=== PATIENT | male | born 1980 | race Caucasian/White ===

== ENCOUNTER 2019-02-13 18:51 | Emergency (ER) | payer BC, MEDICAID ==
[2019-02-13 18:57] VITALS: TEMP 98
[2019-02-13] MEDS ORDERED: HYDROcodone/APAP 5-325MG 1 EACH TAB PO STA (19:37)
[2019-02-13] MEDS ORDERED: KETOROLAC 30 MG/ML 1 ML VIAL IM STA (19:37)
[2019-02-13] MEDS ORDERED: LIDOCAINE 5% PATCH TOPICAL STA (19:37)
--- NOTE | 2019-02-13 19:43 | ED ---
General Adult HPI - General Chief complaint: Abdominal Pain Stated complaint: Rib Pain Time Seen by Provider: 02/13/19 19:07 Source: patient Mode of arrival: ambulatory Limitations: no limitations - History of Present Illness Initial comments: 38-year-old male patient presents to the emergency department today for evaluation of right lateral rib pain. Patient states around 5:30 this afternoon he was jumping up to grab onto gymnastic rings when he fell landing on the right side. States that it was on and on padded region of the floor. Denies hitting his head or losing consciousness. Denies any neck or back pain. Patient states he is having increased pain to the area with deep breathing. Denies any cough or hemoptysis. Denies any shortness of breath. Denies any abdominal pain. Denies hematuria. Patient denies any headache, chest pain, shortness of breath, dizziness, weakness, abdominal pain, nausea, vomiting, or difficulties with bowel movements or urination. - Related Data Home Medications Medication Instructions Recorded Confirmed Multivitamins, Thera [Multivitamin] 1 each PO DAILY 12/05/15 12/06/15 Previous Rx's Medication Instructions Recorded Hydrocodone/Acetaminophen [Bliss 1 tab PO Q6HR PRN #12 tab 02/13/19 5-325] Ibuprofen [Motrin] 600 mg PO Q8HR PRN #30 tab 02/13/19 Lidocaine 5% Patch [Lidoderm] 1 patch TOPICAL DAILY #30 patch 02/13/19 Allergies Allergy/AdvReac Type Severity Reaction Status Date / Time almond Allergy Nausea & Verified 02/13/19 18:57 Vomiting clams Allergy Unknown Verified 02/13/19 18:57 Penicillins Allergy Unknown Verified 12/05/15 09:07 Childhood Review of Systems ROS Statement: Those systems with pertinent positive or pertinent negative responses have been documented in the HPI. ROS Other: All systems not noted in ROS Statement are negative. Past Medical History Past Medical History: No Reported History History of Any Multi-Drug Resistant Organisms: None Reported Past Surgical History: No Surgical Hx Reported Past Anesthesia/Blood Transfusion Reactions: No Reported Reaction Additional Past Anesthesia/Blood Transfusion Reaction / Comment(s): no prior sx hx Past Psychological History: No Psychological Hx Reported Smoking Status: Never smoker Past Alcohol Use History: Occasional Past Drug Use History: None Reported - Past Family History Mother Family Medical History: Cancer Father Family Medical History: Cancer General Exam Limitations: no limitations General appearance: alert, in no apparent distress, other (This is a well- developed, well-nourished adult male patient in no acute distress. Vital signs upon presentation are temperature 98.0F, pulse 72, respirations 18, blood pressure 116/79, pulse ox 99% on room air per) Eye exam: Present: normal appearance, PERRL, EOMI. Absent: scleral icterus, conjunctival injection, periorbital swelling ENT exam: Present: normal exam, normal oropharynx, mucous membranes moist Neck exam: Present: normal inspection, other (Nontender, no step-off, no deformity to firm midline palpation of the posterior cervical spine. Full range of motion without pain or limitation.). Absent: tenderness, meningismus, lymphadenopathy Respiratory exam: Present: normal lung sounds bilaterally, chest wall tenderness (Right lateral ribs). Absent: respiratory distress, wheezes, rales, rhonchi, stridor Cardiovascular Exam: Present: regular rate, normal rhythm, normal heart sounds. Absent: systolic murmur, diastolic murmur, rubs, gallop, clicks GI/Abdominal exam: Present: soft, normal bowel sounds. Absent: distended, tenderness, guarding, rebound, rigid Back exam: Present: other (Nontender, no step-off, no deformity to firm midline palpation of the thoracic and lumbar vertebrae. Full range of motion without pain or limitation.). Absent: CVA tenderness (R), CVA tenderness (L) Neurological exam: Present: alert, oriented X3, CN II-XII intact Psychiatric exam: Present: normal affect, normal mood Skin exam: Present: warm, dry, intact, normal color. Absent: rash Course Vital Signs 02/13/19 02/13/19 18:53 20:44 Temperature 98.0 F 98.0 F Pulse Rate 72 71 Respiratory 18 16 Rate Blood Pressure 116/79 118/86 O2 Sat by Pulse 99 98 Oximetry Medical Decision Making - Medical Decision Making 38-year-old male patient presents to the emergency department today for evaluation of right rib pain after experiencing a fall. Physical examination did reveal tenderness over the right lateral ribs. Lungs are clear to auscultation with good air movement. X-rays were obtained and did reveal a nondisplaced fracture of the right seventh rib. Patient was given incentive spirometer education. He is given prescriptions for pain management. He is instructed follow up with his primary care physician for recheck in 1-2 days. Return parameters discussed in detail. He verbalizes understanding and agrees with this plan. - Radiology Data Radiology results: report reviewed, image reviewed 5 views of the right ribs and chest are obtained. Report was reviewed in its entirety. Impression by Dr. Bell shows subtle nondisplaced fracture of the right anterolateral seventh rib. No underlying acute cardiopulmonary process seen. Disposition Clinical Impression: Right rib fracture Disposition: HOME SELF-CARE Condition: Good Instructions (If sedation given, give patient instructions): Rib Fracture (ED) Additional Instructions: Take medications as directed. Perform incentive spirometry and coughing and deep breathing exercises as directed while awake. Follow-up with the primary care physician for recheck in 1-2 days. Return to the emergency department immediately for any new, worsening, or concerning symptoms. Prescriptions: Lidocaine 5% Patch [Lidoderm] 1 patch TOPICAL DAILY #30 patch Ibuprofen [Motrin] 600 mg PO Q8HR PRN #30 tab PRN Reason: Pain Hydrocodone/Acetaminophen [Bliss 5-325] 1 tab PO Q6HR PRN #12 tab PRN Reason: Pain Is patient prescribed a controlled substance at d/c from ED?: Yes When asked, does pt state using other controlled substances?: No If prescribed controlled substance>3 days was MAPS reviewed?: Prescribed <3 Days If opioid is for acute pain is fill amount 7 days or less?: Yes If Rx opioid, was Start Talking consent form obtained?: Yes Referrals: None,Stated [Primary Care Provider] - 1-2 days Time of Disposition: 20:07
--- NOTE | 2019-02-13 19:58 | XR ---
EXAMINATION TYPE: PA chest and right rib series DATE OF EXAM: 02/13/2019 COMPARISON: None HISTORY: 38-year-old male with fall and rib pain TECHNIQUE: 5 views FINDINGS: Heart upper limits of normal in size. Aorta within normal limits. Mild interstitial prominence as a c hronic appearance. No consolidation, pneumothorax, or pleural effusion. Subtle nondisplaced fracture of the right anterolateral seventh rib. IMPRESSION: Subtle nondisplaced fracture of the right anterolateral seventh rib. No underlying acute cardiopulmon brian process seen.
[2019-02-13 20:45] VITALS: BP 118/86; PULSE 71; RESP 16
== END 2019-02-13 20:44 | disposition home or self-care (01) ==
LOC: EC 18:51
DX: S22.31XA Fracture of one rib, right side, initial encounter for closed fracture (principal); Z88.0 Allergy status to penicillin; Z53.20 Procedure and treatment not carried out because of patient's decision for unspecified reasons; Z91.018 Allergy to other foods; W18.39XA Other fall on same level, initial encounter; Y93.43 Activity, gymnastics
CPT/HCPCS: 99284

== ENCOUNTER 2022-03-03 10:09 | Observation (INO) | payer BC ==
--- NOTE | 2022-03-03 10:39 | ED ---
General Adult HPI - General Chief complaint: Neuro Symptoms/Deficit Stated complaint: Aphasia Time Seen by Provider: 03/03/22 10:20 Source: patient, family, RN notes reviewed Mode of arrival: ambulatory Limitations: no limitations - History of Present Illness Initial comments: Patient is a pleasant 42-year-old male presenting to the emergency Department with facial numbness and aphasia. Onset of symptoms was around 9 AM. Patient was hunting at the time. Patient felt odd sensation of his face. Patient also had a mild headache rated 3/10 left temporal. This headache does continue and does continue to be mild. Not sudden onset or severe. Patient did have some blurry vision from his right eye. No difficulty with walking or extremity weakness. Patient had difficulty getting his words out. Patient was unable to say his daughter's name. The symptoms have improved and patient and spouse feel like he is talking normally at this time. No odd facial sensation anymore. No history of similar symptoms previously. There was questionable history of seizure years ago. - Related Data Home Medications Medication Instructions Recorded Confirmed No Known Home Medications 03/03/22 03/03/22 Allergies Allergy/AdvReac Type Severity Reaction Status Date / Time clams Allergy Unknown Verified 03/03/22 12:59 Penicillins Allergy Unknown Verified 03/03/22 12:59 Childhood almond AdvReac Nausea & Verified 03/03/22 12:59 Vomiting Review of Systems ROS Statement: Those systems with pertinent positive or pertinent negative responses have been documented in the HPI. ROS Other: All systems not noted in ROS Statement are negative. Constitutional: Denies: fever Eyes: Denies: eye pain ENT: Denies: ear pain Respiratory: Denies: cough Cardiovascular: Denies: chest pain Endocrine: Denies: fatigue Gastrointestinal: Denies: abdominal pain Genitourinary: Denies: dysuria Musculoskeletal: Denies: back pain Skin: Denies: rash Neurological: Reports: as per HPI, headache. Denies: confusion Past Medical History Past Medical History: No Reported History History of Any Multi-Drug Resistant Organisms: None Reported Past Surgical History: No Surgical Hx Reported Past Anesthesia/Blood Transfusion Reactions: No Reported Reaction Additional Past Anesthesia/Blood Transfusion Reaction / Comment(s): no prior sx hx Past Psychological History: No Psychological Hx Reported Smoking Status: Never smoker Past Alcohol Use History: Occasional Past Drug Use History: None Reported - Past Family History Mother Family Medical History: Cancer Father Family Medical History: Cancer General Exam Limitations: no limitations General appearance: alert, in no apparent distress Head exam: Present: atraumatic, normocephalic, other (No temporal tenderness to palpation) Eye exam: Present: normal appearance, PERRL, EOMI ENT exam: Present: normal oropharynx Neck exam: Present: normal inspection Respiratory exam: Present: normal lung sounds bilaterally Cardiovascular Exam: Present: regular rate, normal rhythm GI/Abdominal exam: Present: soft. Absent: tenderness Extremities exam: Present: normal inspection Neurological exam: Present: alert, CN II-XII intact. Absent: motor sensory deficit Expanded Neurological exam: Present: protecting the airway Speech: Present: fluid speech Cranial nerves: EOM's Intact: Normal, Facial Sensation: Normal Cerebellar function: Finger to Nose: Normal Sensory exam: Upper Extremity Light Touch: Normal, Lower Extremity Light Touch: Normal Motor strength exam: RUE: 5, LUE: 5, RLE: 5, LLE: 5 Eye Response: (4) open spontaneously Motor Response: (6) obeys commands Verbal Response: (5) oriented Psychiatric exam: Present: normal affect, normal mood Skin exam: Present: normal color Course Vital Signs 03/03/22 03/03/22 03/03/22 10:13 10:58 11:30 Temperature 97.5 F L Pulse Rate 64 65 61 Respiratory 18 18 18 Rate Blood Pressure 134/84 116/77 121/82 O2 Sat by Pulse 100 99 97 Oximetry - Reevaluation(s) Reevaluation #1: 03/03/22 10:46 Patient is not being considered a TPA candidate secondary to resolution of symptoms. Risks are felt to outweigh the benefit. 03/03/22 10:53 Dr. Elise does confirm patient is not a TPA candidate EKG Findings - EKG Results: EKG: interpreted by ERMD, sinus rhythm, normal axis, normal QRS, normal ST/T Medical Decision Making - Medical Decision Making Patient was reevaluated and remained symptom-free. Case was discussed with Dr. Aguayo, who will admit covering hospital call. - Lab Data Result diagrams: 03/03/22 10:40 03/03/22 10:40 Lab Results 03/03/22 03/03/22 03/03/22 Range/Units 10:40 10:40 10:40 WBC 3.9 (3.8-10.6) k/uL RBC 5.11 (4.30-5.90) m/uL Hgb 15.8 (13.0-17.5) gm/dL Hct 42.7 (39.0-53.0) % MCV 83.5 (80.0-100.0) fL MCH 30.8 (25.0-35.0) pg MCHC 36.9 (31.0-37.0) g/dL RDW 12.2 (11.5-15.5) % Plt Count 183 (150-450) k/uL MPV 7.5 Neutrophils % 52 % Lymphocytes % 34 % Monocytes % 6 % Eosinophils % 4 % Basophils % 1 % Neutrophils # 2.0 (1.3-7.7) k/uL Lymphocytes # 1.3 (1.0-4.8) k/uL Monocytes # 0.2 (0-1.0) k/uL Eosinophils # 0.2 (0-0.7) k/uL Basophils # 0.0 (0-0.2) k/uL Hyperchromasia Slight PT 10.9 (9.0-12.0) sec INR 1.0 (<1.2) APTT 24.1 (22.0-30.0) sec Carbon Monoxide, Quant (<10.0) % Sodium 140 (137-145) mmol/L Potassium 4.4 (3.5-5.1) mmol/L Chloride 104 (98-107) mmol/L Carbon Dioxide 26 (22-30) mmol/L Anion Gap 10 mmol/L BUN 15 (9-20) mg/dL Creatinine 1.00 (0.66-1.25) mg/dL Est GFR (CKD-EPI)AfAm >90 (>60 ml/min/1.73 sqM) Est GFR (CKD-EPI)NonAf >90 (>60 ml/min/1.73 sqM) Glucose 107 H (74-99) mg/dL POC Glucose (mg/dL) (70-110) mg/dL POC Glu Inseam Trimming Machine Operator ID Calcium 9.5 (8.4-10.2) mg/dL Total Bilirubin 1.3 (0.2-1.3) mg/dL AST 14 L (17-59) U/L ALT 16 (4-49) U/L Alkaline Phosphatase 63 (38-126) U/L Troponin I (0.000-0.034) ng/mL Total Protein 7.3 (6.3-8.2) g/dL Albumin 4.6 (3.5-5.0) g/dL 03/03/22 03/03/22 03/03/22 Range/Units 10:40 10:40 10:58 WBC (3.8-10.6) k/uL RBC (4.30-5.90) m/uL Hgb (13.0-17.5) gm/dL Hct (39.0-53.0) % MCV (80.0-100.0) fL MCH (25.0-35.0) pg MCHC (31.0-37.0) g/dL RDW (11.5-15.5) % Plt Count (150-450) k/uL MPV Neutrophils % % Lymphocytes % % Monocytes % % Eosinophils % % Basophils % % Neutrophils # (1.3-7.7) k/uL Lymphocytes # (1.0-4.8) k/uL Monocytes # (0-1.0) k/uL Eosinophils # (0-0.7) k/uL Basophils # (0-0.2) k/uL Hyperchromasia PT (9.0-12.0) sec INR (<1.2) APTT (22.0-30.0) sec Carbon Monoxide, Quant 3.1 (<10.0) % Sodium (137-145) mmol/L Potassium (3.5-5.1) mmol/L Chloride (98-107) mmol/L Carbon Dioxide (22-30) mmol/L Anion Gap mmol/L BUN (9-20) mg/dL Creatinine (0.66-1.25) mg/dL Est GFR (CKD-EPI)AfAm (>60 ml/min/1.73 sqM) Est GFR (CKD-EPI)NonAf (>60 ml/min/1.73 sqM) Glucose (74-99) mg/dL POC Glucose (mg/dL) 109 (70-110) mg/dL POC Glu Inseam Trimming Machine Operator ID Bianka, [place] Calcium (8.4-10.2) mg/dL Total Bilirubin (0.2-1.3) mg/dL AST (17-59) U/L ALT (4-49) U/L Alkaline Phosphatase (38-126) U/L Troponin I <0.012 (0.000-0.034) ng/mL Total Protein (6.3-8.2) g/dL Albumin (3.5-5.0) g/dL - Radiology Data Radiology results: report reviewed (CT brain does not reveal acute abnormality. CT angios shows diminutive right vertebral artery,other abad unremarkable study.) Interpreted by me: chest x-ray shows no acute process Disposition Clinical Impression: Transient cerebral ischemia Disposition: ADMITTED IP TO THIS HOSP Is patient prescribed a controlled substance at d/c from ED?: No Referrals: None,Stated [Primary Care Provider] - 1-2 days Time of Disposition: 13:17
[2022-03-03 10:43] LABS: Glucose,Whole Blood 109 mg/dL (70-110)
[2022-03-03 10:54] LABS: Basophils % (A) 1 %; Eosinophils # (A) 0.2 k/uL (0-0.7); Eosinophils % (A) 4 %; HCT 42.7 % (39.0-53.0); HGB 15.8 gm/dL (13.0-17.5); Hyperchromasia Slight; Lymphocytes # (A) 1.3 k/uL (1.0-4.8); Lymphocytes % (A) 34 %; MCH 30.8 pg (25.0-35.0); MCHC 36.9 g/dL (31.0-37.0); MCV 83.5 fL (80.0-100.0); Mean Platelet Volume 7.5; Monocytes # (A) 0.2 k/uL (0-1.0); Monocytes % (A) 6 %; Neutrophils % (A) 52 %; Platelet Count 183 k/uL (150-450); RBC 5.11 m/uL (4.30-5.90); RDW 12.2 % (11.5-15.5); WBC 3.9 k/uL (3.8-10.6)
--- NOTE | 2022-03-03 11:01 | CT ---
EXAMINATION TYPE: CT brain wo con for TPA DATE OF EXAM: 03/03/2022 COMPARISON: None HISTORY: stroke CT DLP: 1180.[address] of the brain was performed. The ventricles, basal cisterns and sulci overlying the cerebral convexities demonstrate a normal appe arance. There is no evidence for intracranial hemorrhage or sulcal effacement. No mass effects are seen. Osseous calvarium is intact. If symptoms persist consider MRI as clinically warranted. IMPRESSION: 1. No acute intracranial process is seen at this time.
[2022-03-03 11:05] LABS: ALT 16 U/L (4-49); AST 14 U/L (17-59); African American GFR (CKD) >90 (>60 ml/min/1.73 sqM); Albumin 4.6 g/dL (3.5-5.0); Alkaline Phosphatase 63 U/L (38-126); Anion Gap 10 mmol/L; Blood Urea Nitrogen 15 mg/dL (9-20); Calcium 9.5 mg/dL (8.4-10.2); Carbon Dioxide 26 mmol/L (22-30); Chloride 104 mmol/L (98-107); Glucose 107 mg/dL (74-99); Non-African American GFR(CKD) >90 (>60 ml/min/1.73 sqM); Partial Thromboplastin Time 24.1 sec (22.0-30.0); Potassium 4.4 mmol/L (3.5-5.1); Prothrombin Time 10.9 sec (9.0-12.0); Sodium 140 mmol/L (137-145); Total Bilirubin 1.3 mg/dL (0.2-1.3); Total Protein 7.3 g/dL (6.3-8.2)
--- NOTE | 2022-03-03 11:26 | CT ---
EXAMINATION TYPE: CT angio head neck DATE OF EXAM: 03/03/2022 COMPARISON: None HISTORY: stroke CT DLP: 600.3 mGycm CONTRAST: Performed with IV Contrast, patient injected with 65 mL of Isovue 370. Combination Contrast CTA cervical carotids and [place] CTA cervical carotids with 3-D recons truction Contrast CTA of the cervical carotids was performed 3-D reconstruction imaging obtained at a separate workstation. Right carotid system: No significant plaque is seen of the right common carotid artery. There is No significant plaque also noted at the carotid bulb and proximal ICA. No significant diameter reductio n. ECA is patent. Right vertebral artery appears unremarkable. Left carotid system: No significant plaque is seen of the left common carotid artery. There is No si gnificant plaque also noted at the carotid bulb and proximal ICA. No significant diameter reduction. ECA is patent. Left vertebral artery appears unremarkable. IMPRESSION: 1. No significant diameter reduction to account for the patient's symptoms. CTA [place] with 3-D reconstruction Contrast CTA of the [place] was performed 3-D reconstruction imaging obtained at a separate workstation. Vertebrobasilar system as well as intracranial portions of the internal carotid arteries and their ma shannon tributaries are patent. Diminutive right vertebral artery. I do not see evidence for sizable aneu rysm or vascular malformation. Please note MRI provides greater sensitivity and specificity. Visual ized brain appears grossly unremarkable. IMPRESSION: 1. There is diminutive right vertebral artery. Otherwise unremarkable study. NASCET criteria was used in interpretation of this exam?
--- NOTE | 2022-03-03 11:38 | XR ---
EXAMINATION TYPE: XR chest 2V DATE OF EXAM: 03/03/2022 COMPARISON: 02/13/19 HISTORY: Chest pain TECHNIQUE: Frontal and lateral views of the chest are obtained. FINDINGS: There is no focal air space opacity. No evidence for pneumothorax. No pleural effusion. The cardiac silhouette size is within normal limits. The osseous structures are grossly intact. IMPRESSION: 1. No acute cardiopulmonary process.
[2022-03-03] MEDS ORDERED: ACETAMINOPHEN TAB 325 MG TAB PO PRN (13:06)
[2022-03-03] MEDS ORDERED: NALOXONE 0.4 MG/ML 1 ML VIAL IV PRN (13:06)
[2022-03-03] MEDS ORDERED: ONDANSETRON 4 MG/2 ML VIAL IVP PRN (13:06)
--- NOTE | 2022-03-03 13:15 | P.HPIM ---
History of Present Illness H&P Date: 03/03/22 Chief Complaint: TIA 42-year-old male with no PMH presenting to the emergency Department with blurred vision in the right eye, tongue numbness and aphasia. Onset of symptoms was around 9 AM. Patient was hunting at the time. He states that he could think what he wanted to say but he could not put it out. Patient was unable to say his daughter's name. Patient also had a mild headache rated 3/10 bitemporal. The symptoms lasted for about an hour, currently resolved. No focal weakness or numbness. No difficulty with walking or extremity weakness. No history of similar symptoms previously. The father side of his family had problems with heart attacks and strokes, age of onset the 50s and 60s. Evaluation in the emergency department revealed normal vital signs. Labs unremarkable. Head CT scan negative. Head and neck CT angiogram negative. Chest x-ray unremarkable. Review of Systems Complete review of system performed, pertinent positives per HPI, otherwise negative Past Medical History Past Medical History: No Reported History History of Any Multi-Drug Resistant Organisms: None Reported Past Surgical History: No Surgical Hx Reported Past Anesthesia/Blood Transfusion Reactions: No Reported Reaction Additional Past Anesthesia/Blood Transfusion Reaction / Comment(s): no prior sx hx Past Psychological History: No Psychological Hx Reported Smoking Status: Never smoker Past Alcohol Use History: Occasional Past Drug Use History: None Reported - Past Family History Mother Family Medical History: Cancer Father Family Medical History: Cancer Medications and Allergies Home Medications Medication Instructions Recorded Confirmed Type No Known Home Medications 03/03/22 03/03/22 History Allergies Allergy/AdvReac Type Severity Reaction Status Date / Time clams Allergy Unknown Verified 03/03/22 12:59 Penicillins Allergy Unknown Verified 03/03/22 12:59 Childhood almond AdvReac Nausea & Verified 03/03/22 12:59 Vomiting Physical Exam Vitals: Vital Signs Temp Pulse Resp BP Pulse Ox 03/03/22 11:30 61 18 121/82 97 03/03/22 10:58 65 18 116/77 99 03/03/22 10:13 97.5 F L 64 18 134/84 100 Intake and Output 03/02/22 03/03/22 03/03/22 22:59 06:59 14:59 Other: Weight 81.647 kg Constitutional: No acute distress, conversant, pleasant Eyes:Anicteric sclerae, moist conjunctiva, no lid-lag, PERRLA, ENMT: Oropharynx clear, no erythema, exudates Neck: Supple, FROM, no masses, or JVD, No carotid bruits, No thyromegaly Lungs: Clear to auscultation, Clear to percussion, Normal respiratory effort, no accessory muscle use Cardiovascular: Heart regular in rate and rhythm, No murmurs, gallops, or rubs, No peripheral edema Abdominal: Soft, Nontender, no guarding, rebound or rigidity, Normoactive bowel sounds, No hepatomegaly, No splenomegaly, No palpable mass Skin: Normal temperature, tone, texture, turgor, no induration, No subcutaneous nodules, No rash, lesions, No ulcers Extremities: No digital cyanosis, No clubbing, Pedal pulses intact and symmetrical, Radial pulses intact and symmetrical, No calf tenderness Psychiatric: Alert and oriented to person, place and time, appropriate affect, intact judgement Neuro: Muscles Strength 5/5 in all 4 extremities, Sensation to light touch grossly present throughout, Cranial nerves II-XII grossly intact, no focal sensory deficits Results CBC & Chem 7: 03/03/22 10:40 03/03/22 10:40 Labs: Abnormal Lab Results - Last 24 Hours (Table) 03/03/22 Range/Units 10:40 Glucose 107 H (74-99) mg/dL AST 14 L (17-59) U/L Assessment and Plan Plan: Transient ischemic attack MRI brain Echocardiogram Monitor on telemetry Check lipid profile and HbA1c Neurology evaluation Bitemporal headaches Possibly related to above Resolved Admit to observation.
[2022-03-03] MEDS ORDERED: ASPIRIN 325 MG TAB PO STA (13:18)
[2022-03-03] MEDS: SODIUM CHLORIDE 0.9% 1,000 ML IV SCH (15:37)
[2022-03-03 18:28] LABS: Chol/HDL Ratio 3.31 Ratio; LDL Cholesterol,Calculated 111.6 mg/dL (0.0-131.0)
[2022-03-04] MEDS: SODIUM CHLORIDE 0.9% 1,000 ML IV SCH ×2 (03:04→12:39)
[2022-03-04 08:20] VITALS: BP 112/76; PULSE 57; RESP 16; TEMP 97.4
[2022-03-04] MEDS ORDERED: ASPIRIN 325 MG TAB PO SCH (09:00)
[2022-03-04 09:05] LABS: African American GFR (CKD) 107.9 (60.0-200.0); Albumin 3.9 g/dL (3.8-4.9); Albumin/Globulin Ratio 2.17 (1.60-3.17); Anion Gap 7.7 mmol/L (10.00-18.00); BUN/Creat Ratio 16.8 Ratio (12.00-20.00); Blood Urea Nitrogen 16.8 mg/dL (9.0-27.0); Calcium 9.3 mg/dL (8.7-10.3); Carbon Dioxide 26.3 mmol/L (20.0-27.5); Globulin 1.8 g/dL (1.6-3.3); Non-African American GFR(CKD) 93.1 (60.0-200.0); Potassium 4.5 mmol/L (3.5-5.5); Total Bilirubin 0.5 mg/dL (0.30-1.20); Total Protein 5.7 g/dL (6.2-8.2)
[2022-03-04 09:32] LABS: Basophils # (A) 0.02 X 10*3/uL (0.00-0.10); Basophils % (A) 0.4 %; Eosinophils # (A) 0.22 X 10*3/uL (0.04-0.35); Eosinophils % (A) 4.6 %; HCT 39.6 % (39.6-50.0); HGB 14.1 g/dL (13.0-17.0); Immature Grans, Automated 0.4 %; Lymphocytes # (A) 1.81 X 10*3/uL (0.90-5.00); Lymphocytes % (A) 37.7 %; MCH 30.9 pg (27.0-32.0); MCHC 35.6 g/dL (32.0-37.0); MCV 86.7 fL (80.0-97.0); Mean Platelet Volume 10.3 fL (9.5-12.2); Monocytes # (A) 0.45 X 10*3/uL (0.20-1.00); Monocytes % (A) 9.4 %; NRBC Per 100 WBC 0 /100 WBCS (0.0-0.0); Neutrophils # (A) 2.28 X 10*3/uL (1.80-7.70); Neutrophils % (A) 47.5 %; Platelet Count 190 X 10*3/uL (140-440); RBC 4.57 X 10*6/uL (4.40-5.60); RDW 11.9 % (11.5-14.5)
--- NOTE | 2022-03-04 12:07 | P.CNNES ---
History of Present Illness Consult date: 03/04/22 Requesting physician: Ronan Campbell Reason for Consult: TIA History of Present Illness: Patient is a 42-year-old right-handed male otherwise healthy, came to the hospital yesterday at 10:09 AM for possible TIA. Patient's was also present, who also provided with a history. Yesterday patient was outside in the [place], trying to do [place] hunting, when he started having a headache involving bitemporal region, left more than right. He looked at the phone, and noticed blurred vision mainly on the right side. It was worse with a close vision as compared to do the distant vision. At one time it appeared like double vision although he later clarified it as blurred vision. He came back home, and was getting ready to take [place] presents been he started saying something, but the words were slurred and did not come out right. He could not say name of his daughter. He was mentally clear, knew what he wanted to say, but the words came out as mumbled jumbled. He also noticed tingling of the tongue, and felt was involving the entire tongue. This paresthesias of the tongue lasted for about half an hour, whereas his speech difficulty lasted for an hour. There was no facial droop, focal weakness, any numbness or tingling of the extremities or any problem with the balance. He continued to walk with a normal gait. Patient's brought him to the hospital. Vital signs on arrival blood pressure 134/84, pulse rate 64 temperature 97.5, blood test was normal CBC, PT/PTT, carbon monoxide is normal, Chem-[address] head showed no acute intracranial process. Chest x-ray is normal. EKG with normal sinus rhythm. Patient's believes that his blood pressure has been remained stable in the hospital. He does not smoke, does not drink alcohol or marijuana. Patient does not take any medication at home. He does not take any antiplatelet medication. Denies any previous history of migraines or family history of migraines. He does have strong family history of cardiac and stroke history in his father's side, who have their own risk factors of obesity, alcoholism, tobacco and diabetes. Patient has history of closed head injury, when he fell off the ladder at age 17. He hit his head on the concrete. He was given Dilantin for couple months, and was taken off. He never had a seizure. He denies excessive caffeine intake except for 2 cups of coffee per day. Review of Systems Constitutional: Denies chills, Denies fever Eyes: bilateral blurred vision, bilateral diplopia (Looking to the right), denies pain, denies loss of vision Ears: deny: decreased hearing Ears, nose, mouth and throat: Reports headache, Denies sore throat Cardiovascular: Denies chest pain, Denies shortness of breath Respiratory: Denies cough Gastrointestinal: Denies abdominal pain, Denies diarrhea, Denies nausea, Denies vomiting Musculoskeletal: Denies myalgias Integumentary: Denies pruritus, Denies rash Neurological: Reports as per HPI Psychiatric: Denies anxiety, Denies depression Endocrine: Denies fatigue, Denies weight change Hematologic/Lymphatic: Denies easy bruising Allergic/Immunologic: Denies persistent infections Past Medical History Past Medical History: No Reported History Additional Past Medical History / Comment(s): Patient fell at 17 yrs old from a hay pile and lost consciousness, Drs thought he might have had a seizure and was on Dilantin for a period of time History of Any Multi-Drug Resistant Organisms: None Reported Past Surgical History: No Surgical Hx Reported Past Anesthesia/Blood Transfusion Reactions: No Reported Reaction Additional Past Anesthesia/Blood Transfusion Reaction / Comment(s): no prior sx hx Past Psychological History: No Psychological Hx Reported Smoking Status: Never smoker Past Alcohol Use History: Occasional Past Drug Use History: None Reported - Past Family History Mother Family Medical History: Cancer Father Family Medical History: Cancer Medications and Allergies Home Medications Medication Instructions Recorded Confirmed Type No Known Home Medications 03/03/22 03/03/22 History Allergies Allergy/AdvReac Type Severity Reaction Status Date / Time clams Allergy Unknown Verified 03/03/22 12:59 Penicillins Allergy Unknown Verified 03/03/22 12:59 Childhood almond AdvReac Nausea & Verified 03/03/22 12:59 Vomiting Physical Examination - Vital Signs Vital Signs: Vital Signs Temp Pulse Pulse Resp BP BP Pulse Ox 03/04/22 07:52 100 03/04/22 07:50 97.4 F L 57 L 16 112/76 98 03/04/22 02:25 97.8 F 54 L 19 102/87 100 03/03/22 19:31 17 03/03/22 18:31 97.8 F 66 16 121/69 97 03/03/22 17:00 76 16 109/98 96 03/03/22 16:00 74 16 110/70 99 03/03/22 15:00 82 18 113/69 97 03/03/22 14:00 63 18 116/79 99 03/03/22 13:00 61 16 111/75 100 03/03/22 12:30 66 16 114/84 100 03/03/22 12:00 62 18 112/79 99 03/03/22 11:30 66 18 115/81 100 03/03/22 10:58 65 18 116/77 99 03/03/22 10:13 97.5 F L 64 18 134/84 100 Intake and Output 03/03/22 03/04/22 03/04/22 22:59 06:59 14:59 Other: Voiding Method Toilet # Voids 1 2 Weight 81.647 kg Patient is a middle aged male, in no acute distress. Patient is alert awake oriented to time place and person. Speech and language functions are normal. Patient can name and repeat very well. No aphasia or dysarthria. Attention, concentration and fund of knowledge is adequate. On cranial nerve examination, pupils are equal, round and reacting to light, visual ortega are full on confrontation, with no neglect on double simultaneous stimulation. Extraocular muscles are intact with no nystagmus. Face is symmetric, tongue protrudes to the midline. Palatal elevation and sensation normal, hearing and shoulder shrug normal, facial sensation normal. On muscle strength testing, there is no pronator drift and the strength is normal in arms and legs distally and proximally. Deep tendon reflexes are symmetric somewhat hypoactive and plantars downgoing bilaterally. Sensory to touch is equal with no neglect on double simultaneous stimulation. Cerebellar function showed no ataxia for [id number] testing. No dysdiadochokinesia. No ataxia for [id number] testing on either side. Tone and bulk of muscles normal. Gait deferred.. On general examination, there is no carotid bruit or murmur, S1-S2 audible. Chest is clear on consultation. Abdomen is soft nontender. No organomegaly, bowel sounds present. Peripheral pulses are present. No edema. Results - Laboratory Findings CBC and BMP: 03/04/22 04:45 03/04/22 04:45 Abnormal Lab Findings: Abnormal Labs 03/03/22 03/04/22 10:40 04:45 Chloride 110 H Anion Gap 7.70 L Glucose 107 H AST 14 L 5 L ALT 7 L Total Protein 5.7 L Assessment and Plan Assessment: * Possible TIA manifesting with transient blurred vision particularly looking to the right, slurred speech. Symptoms resolved in an hour. Migraine appears less likely, as patient has no previous history or family history of migraines. * History of closed head injury at age 17 due to a fall from ladder, with no residual deficits. * Dyslipidemia Plan: * Patient had a possible TIA. Patient has been started on aspirin 325 mg. * Agree with checking MRI of the brain evaluate for an acute stroke, 2-D echo to rule out any embolic source * Telemetry monitoring, rule out arrhythmia * Lipid panel with cholesterol 178 LDL 111, HDL 53 and triglycerides 63. Consider starting low-dose Lipitor 10 mg daily to target LDL < 70-100 * Hemoglobin A1c 5.0 * CTA of the neck reported as diminutive right vertebral artery. Otherwise unremarkable study. * CTA of the head showed no significant diameter reduction to account for patient's symptoms. * Check EEG to rule out any epileptiform activity. * Neurology will follow. Discussed with primary physician. Thank you for the consult.
--- NOTE | 2022-03-04 13:22 | MR ---
EXAMINATION TYPE: MR brain wo con DATE OF EXAM: 03/04/2022 COMPARISON: CT brain from 1 day earlier HISTORY: TIA. Altered mental status. Acute onset neurologic deficit on admission 1 day earlier. TECHNIQUE: Multiplanar, multisequence imaging of the brain and brainstem is performed without IV cont rast. FINDINGS: Diffusion weighted images demonstrate no evidence of a recent infarct or other diffusion abnormality. There is no extraaxial fluid collection or significant white matter signal abnormality. The ventricu lar system and cisternal spaces are normal in size and appearance. The brain volume is age appropria te. T2 Star weighted images show no suspicious intraparenchymal blood product. Midline structures demonstrate normal morphology. The craniocervical junction appears within normal limits. Normal vascular flow voids are present. Dominant left vertebral artery filling the basilar ar audie is noted. Small mucous retention cyst or polyp in the inferior right maxillary sinus is redemons trated. The globes are intact bilaterally. IMPRESSION: No MRI evidence for a recent infarct. Fairly unremarkable study.
--- NOTE | 2022-03-04 15:33 | P.DS ---
Providers Date of admission: 03/03/22 13:06 Expected date of discharge: 03/04/22 Attending physician: Ronan Campbell MD Consults: 03/03/22 13:07 Consult Physician Routine Consulting Provider: Darshan Grace Consult Reason/Comments: tia Do you want consulting provider notified?: Yes Primary care physician: Stated None Hospital Course: Discharge Diagnosis: Episodic headache, blurred vision, and expressive aphasia. Unclear etiology. TIA vs complex migraine vs complications of carbon monoxide. Workup negative including CT head, CTA head and neck, MRI brain, and EEG. Lipid profile and hemoglobin A1c were also unremarkable. Patient being discharged home on aspirin and atorvastatin as recommended by neurology and to follow up outpatient with PCP in 1-2 days and cardiology in 1 week for further evaluation and possible consideration of a Holter/event monitor. Slightly elevated carbon monoxide level in a nonsmoker, patient instructed to ensure adequate circulation of air when using propane heater in enclosed hunting blind, may also consider taking a battery operated carbon monoxide detector during times of use. History of questionable isolated seizure, EEG negative. Hospital Course: Patient is a very pleasant 42-year-old male with no known reported past medical history with the exception of a questionable isolated seizure years ago at the age of 17. He presented to the emergency department with a chief complaint of a experiencing an episodic bilateral temporal headache worse on the left, mild blurred vision of his right eye, a strange tingling sensation to his tongue and some aphasia having difficulties getting his words out. Patient was reportedly sitting in an enclosed hunting blind with a propane heater at time of this came on and returned home where the symptoms continued and he noticed he was unable to state his daughter's name out loud, saying that he knew what he was trying to say but the words would not come out and this is when his took him to the hospital for evaluation. Patient and report symptoms lasted approximately less than one hour prior to full resolution. Upon arrival to the emergency department patient had full resolution of symptoms. Vital signs were unremarkable. CBC, coags, and CMP were unremarkable. Troponin negative at less than 0.012. CT brain was negative for acute intercranial process. CTA head negative for acute intercranial process. CTA neck negative showing no significant plaque. EKG showing normal sinus rhythm at 62 bpm with no noted T- wave or ST abnormalities showing no signs of acute ischemia. Venous carbon monoxide quantitative slightly elevated at 3.1% as patient is a nonsmoker and denies smoking history. Patient was admitted under the services with consultation to neurology. Patient monitored overnight and all symptoms remained resolved since arrival to our facility. Morning labs unremarkable. Hemoglobin A1c 5%. Lipid profile also unremarkable. MRI brain completed reporting to be fairly unremarkable study with no evidence of recent infarct. EEG was completed and negative for epileptiform activity. Echocardiogram completed showing EF of 55-60% with no structural or valvular abnormalities. Neurology recommending patient continue daily aspirin 81 mg daily and atorvasta tin 10 mg daily and to follow up with cardiology for evaluation of possible Holter/event monitor. Medically patient is stable for discharge at this time and free from any questions, concerns, or complaints at this time. Patient to follow up outpatient with PCP in 1-2 days and cardiology in 1 week. Physical exam: Patient seen and examined at bedside. Vital signs reviewed and stable. General: Nontoxic, no distress and appears stated age. Derm: Skin warm and dry, normal coloration for ethnicity. Head: Atraumatic, normocephalic and symmetric. Eyes: EOMs intact, no lid lag, and anicteric sclera Mouth: no lip lesions, mucus membranes moist Cardiovascular: regular rate and rhythm with normal S1S2, no murmur, positive posterior tibial pulses bilaterally, and cap refill < 2 seconds. Lungs: Respirations even, regular, and unlabored on room air. Lungs CTA bilaterally, no rhonchi, no rales, no wheezing, and no accessory muscle usage. Abdominal: soft, nontender to palpation, no guarding, no appreciable organomegaly Ext: ROM intact. No gross muscle atrophy, no edema, no contractures Neuro: Speech clear, face symmetrical and CN II-XII grossly intact, GCS 15 with no noted neurological deficits. Psych: Alert and oriented to person, place, time, and situation. Appropriate and pleasant affect. A total of 33 minutes of time were spent preparing this complex discharge summary. Pt was discharged on 03/04/22 at 3:19 PM. Patient Condition at Discharge: Stable Plan - Discharge Summary Discharge Rx Participant: No New Discharge Prescriptions: New Atorvastatin [Lipitor] 10 mg PO HS 30 Days #30 tab Aspirin 81 mg PO DAILY 30 Days #30 tab Discharge Medication List Aspirin 81 mg PO DAILY 30 Days #30 tab 03/04/22 [Rx] Atorvastatin [Lipitor] 10 mg PO HS 30 Days #30 tab 03/04/22 [Rx] Follow up Appointment(s)/Referral(s): Gary Saucedo MD [STAFF PHYSICIAN] - 1 Week (Appointment for evaluation and possible event monitor placement. ) Nathan Murillo MD [REFERRING] - 1-2 Days Patient Instructions/Handouts: Transient Ischemic Attack (DC) Activity/Diet/Wound Care/Special Instructions: Activity: As tolerated. Take breaks as needed. Diet: Heart healthy and carb consistent diet. Avoid salts, or foods with hidden salts such as canned or boxed foods and frozen dinners. Extra salt makes your heart work harder and traps the fluid in your body for longer. Special Instructions: Take all of your medications as directed and remember to keep all of your doctor's appointments and follow-up as needed. As discussed, you will need to follow up outpatient with cardiology to review echocardiogram results as these are not available at time of discharge. Please ensure you have adequate circulation of air when using propane heater in your enclosed hunting blind, may also consider taking a battery operated carbon monoxide detector with you during these times. Thank you for allowing us to participate in your care, it was truly a pleasure having you for our patient!!! Discharge Disposition: HOME SELF-CARE
--- NOTE | 2022-03-04 16:27 | CA ---
Transthoracic Echo Report Name: Vargas Enriquez Age: 42 Gender: M : 1980 Exam Date: 03/04/2022 14:51 Exam Location: [facility] Ht (in): 66 Wt (lb): 180 Ordering Physician: Ronan Campbell MD Attending/Referring Phys: [id number], [employer] Producer Lovely Ryder RDCS Procedure CPT: Indications: tia Cardiac Hx: Technical Quality: Fair Contrast 1: Total Dose (mL): Contrast 2: Total Dose (mL): MEASUREMENTS (Male / Female) Normal Values 2D ECHO LV Diastolic Diameter PLAX 4.1 cm 4.2 - 5.9 / 3.9 - 5.3 cm LV Systolic Diameter PLAX 2.3 cm IVS Diastolic Thickness 1.4 cm 0.6 - 1.0 / 0.6 - 0.9 cm LVPW Diastolic Thickness 1.2 cm 0.6 - 1.0 / 0.6 - 0.9 cm LV Relative Wall Thickness 0.6 RV Internal Dim ED PLAX 3.8 cm LA Volume 43.4 cm??? 18 - 58 / 22 - 52 cm??? M-MODE Aortic Root Diameter MM 2.9 cm LA Systolic Diameter MM 3.7 cm LA Ao Ratio MM 1.3 AV Cusp Separation MM 2.0 cm DOPPLER AV Peak Velocity 127.7 cm/s AV Peak Gradient 6.5 mmHg AV Mean Velocity 89.7 cm/s AV Mean Gradient 3.6 mmHg AV Velocity Time Integral 26.3 cm LVOT Peak Velocity 119.6 cm/s LVOT Peak Gradient 5.7 mmHg MV Area PHT 3.3 cm??? Mitral E Point Velocity 122.9 cm/s Mitral A Point Velocity 59.4 cm/s Mitral E to A Ratio 2.1 MV Deceleration Time 230.1 ms MV E' Velocity 11.6 cm/s Mitral E to MV E' Ratio 10.6 TR Peak Velocity 247.6 cm/s TR Peak Gradient 24.5 mmHg Right Ventricular Systolic Press 29.5 mmHg FINDINGS Left Ventricle Mildly increased left ventricular wall thickness. Normal left ventricular systolic function with no obvious regional wall motion abnormalities. Left ventricular ejection fraction is estimated at 55-60 %. Right Ventricle Mild right ventricular dilatation. Right ventricular systolic pressure within normal limits. Right Atrium Normal right atrial size. Left Atrium Normal left atrial size. No evidence for an atrial septal defect. Mitral Valve Structurally normal mitral valve. No mitral stenosis, regurgitation or prolapse. Aortic Valve Trileaflet aortic valve. No aortic valve stenosis or regurgitation. Tricuspid Valve Structurally normal tricuspid valve. Mild tricuspid regurgitation. Pulmonic Valve Trace pulmonic regurgitation. Pericardium No pericardial effusion. Aorta Normal size aortic root and proximal ascending aorta. CONCLUSIONS Normal LV systolic function Previewed by: Dr. Lester Menezes MD (Electronically Signed) Final Date: 04 March 2022 16:26
[2022-03-04] MEDS ORDERED: ATORVASTATIN 10 MG TAB PO SCH (21:00)
--- NOTE | 2022-03-05 01:45 | EEG ---
ELECTROENCEPHALOGRAM REPORT PREAMBLE: This is a 42-year-old male with possible TIA. EEG FINDINGS: This is a 21-channel digital EEG recorded with video component, utilizing 10/20 international system with referential and bipolar montages. Background consists of well developed, well regulated moderate voltage activity in 10 hertz alpha. Background is posterior dominant and reactive to eye opening and closing. Photic driving response was not seen. Some drowsiness was seen with appearance of bilaterally symmetric theta frequency rhythm. Deeper stages of sleep were not seen. No focal or generalized epileptiform activity was seen. IMPRESSION: This is a normal awake and drowsy EEG. No focal, lateralized, or epileptiform activity was seen. MMODL / IJN: [id number] /
== END 2022-03-04 15:36 | disposition home or self-care (01) ==
LOC: EC 10:09 → 6NMEDSUR 13:06
PROVIDERS: ADMIT Internal Medicine; ATTEND Internal Medicine
DX: G45.9 Transient cerebral ischemic attack, unspecified (principal); E78.5 Hyperlipidemia, unspecified; I07.1 Rheumatic tricuspid insufficiency; I37.1 Nonrheumatic pulmonary valve insufficiency; Z88.0 Allergy status to penicillin; Z80.9 Family history of malignant neoplasm, unspecified; Z82.3 Family history of stroke; Z82.49 Family history of ischemic heart disease and other diseases of the circulatory system; Z83.3 Family history of diabetes mellitus; Z81.1 Family history of alcohol abuse and dependence; Z81.2 Family history of tobacco abuse and dependence; Z79.82 Long term (current) use of aspirin; Z79.899 Other long term (current) drug therapy
CPT/HCPCS: 99285; 36415; 94760; 95816; 93005; 93306; 80061; 80053 ×2; 82375; 83735; 84484; 85025 ×2; 85610; 85730; 83036; 71046; 70496; 70450; 70498; 70551; G0378 ×2; Q9967

== ENCOUNTER 2022-03-21 06:38 | Day surgery (SDC) | payer BC ==
[2022-03-19 12:16] VITALS: BMI 29.8
[2022-03-21 07:17] VITALS: TEMP 97.8
[2022-03-21] MEDS ORDERED: SODIUM CHLORIDE 0.9% 500 ML 500 ML IV ONE (07:22)
[2022-03-21] MEDS ORDERED: PROPOFOL 10 MG/ML 20 ML VIAL IV ONE (07:49)
[2022-03-21] MEDS ORDERED: MIDAZOLAM 2 MG/2 ML VIAL ONE (07:49)
[2022-03-21] MEDS ORDERED: BENZOCAINE SPRAY 1 CAN TOPICAL ONE (07:54)
[2022-03-21 08:40] VITALS: RESP 16
--- NOTE | 2022-03-21 08:52 | ECHOT ---
TRANSESOPHAGEAL ECHOCARDIOGRAM INDICATIONS: TIA, rule out cardiac source of thromboembolic phenomenon. PROCEDURE NOTE: After obtaining informed consent, transesophageal echocardiogram was performed in left lateral position using an Omniplane probe. Local and IV sedation were obtained by the museum assistant. We could not perform KAMARI under local and IV sedation. Hence, we opted for propofol. FINDINGS: 1. There is no intracardiac thrombus within the left atrial appendage, left atrium, right atrium, right ventricle, or left ventricle. 2. Left ventricle has normal size and systolic function. 3. Right atrium and right ventricle appear mildly enlarged. 4. Interatrial septum, there is no evidence of [id number] shunt by color-flow Doppler or [id number] shunt by agitated saline contrast study. 5. Aortic valve appears normal. There is no evidence of aortic stenosis or regurgitation. There is trace mitral regurgitation. Tricuspid valve appears normal. 6. Aortic root measures within normal limits. No significant atherosclerosis is noted. CONCLUSION: 1. Normal LV systolic function. No intracardiac thrombus. No shunting across interatrial septum. 2. Slightly enlarged right atrium and right ventricle. MMODL / IJN: [id number] /
[2022-03-21 12:14] VITALS: BP 127/75; PULSE 67
== END 2022-03-21 09:24 | disposition home or self-care (01) ==
LOC: CATHCVL 06:38
PROVIDERS: ATTEND Internal Medicine Cardiovascular Disease
DX: I51.7 Cardiomegaly (principal); G45.9 Transient cerebral ischemic attack, unspecified; E78.5 Hyperlipidemia, unspecified; Z79.02 Long term (current) use of antithrombotics/antiplatelets; Z79.82 Long term (current) use of aspirin; Z88.0 Allergy status to penicillin; Z91.018 Allergy to other foods
CPT/HCPCS: 93312; 93320; 93325; J2250; J2704

== ENCOUNTER → 2024-03-03 | Outpatient (CLI) | payer BC ==
--- NOTE | 2024-03-09 23:36 | P.PCN ---
Date of Procedure: 03/03/24 Operative Findings: Home sleep study testing Date of service is 03/03/2024 History This is a 44-year-old male patient with reported history of snoring, wand excessive daytime sleepiness. The patient has gained some weight recently. He has no history of smoking. He drinks alcohol socially. He has a positive family of obstructive sleep apnea Pertinent physical findings body mass index is 31 with a weight of 192 Technical description the [employer] system was used to complete his home sleep study. This is a type III home sleep study evaluation. The total recording duration was 7 hours and 56 minutes. The study started at 10:45 PM and ended at 6:41 AM. There was a total of 7 hours and 44 minutes of flow monitoring and 7 hours and 45 minutes of oxygen saturation monitoring Results Respiratory analysis showed a total of 0 obstructive apneas and 20 obstructive hypopneas. The resulting AHI was 2.6 Oxygenation analysis No evidence of any significant nocturnal oxygen desaturation and patient is average pulse ox was 94% with a minimum pulse ox of 90% during sleep Cardiac analysis Average heart rate was 61-minute with a minimum heart rate of 49 and a maximum heart of 96 Assessment Primary snoring, no evidence of any significant sleep breathing disorder No evidence of any nocturnal oxygen desaturation Plan Negative study for obstructive sleep apnea Will work on maintaining good sleep hygiene measures and good sleep hygiene principles Avoid alcohol drinking at least 3 hours prior to going to bed No need for CPAP therapy Refer this patient back to primary care
== END ==
LOC: 3 N SLEEP 11:03
PROVIDERS: ATTEND Internal Medicine Critical Care Medicine
DX: R06.83 Snoring (principal); Z88.0 Allergy status to penicillin; Z91.018 Allergy to other foods; Z91.013 Allergy to seafood